=== PATIENT | female | born 1965 | race Caucasian/White ===

== ENCOUNTER → 2018-06-15 | Outpatient (CLI) | payer SELFPAY ==
[~2018-06-15] MED LIST: BACTRIM DS 8001 TAB PO; PROBIOTIC-SUNMARK; PROTONIX 40MG T40 MG PO
[2018-06-15 17:18] LABS: HEMATOCRIT 44.4 % (37.0-47.0); HEMOGLOBIN 15.2 g/dl (12.5-16.0); MEAN CELL VOLUME 92 fl (80.0-100.0); MEAN CORPUSCULAR HEMOGLOBIN 32 pg (27.0-31.0); MEAN CORPUSCULAR HGB CONC 34 g/dl (33.0-37.0); MEAN PLATELET VOLUME 9.9 fl (7.4-10.4); PLATELET COUNT 304 K/mm3 (130-400); RED BLOOD COUNT 4.82 M/mm3 (4.10-5.30); REDCELL DISTRIBUTION WIDTH-CV 13.8 % (11.5-14.5)
[2018-06-15 17:38] LABS: ALBUMIN 4.5 gm/dL (3.5-5.0); BILIRUBIN,TOTAL 0.5 mg/dL (0.0-1.0); CALCIUM 9.6 mg/dL (8.4-10.2); CHOLESTEROL RISK RATIO 2.3; CREATININE, serum 0.59 mg/dL (0.52-1.25); POTASSIUM 3.9 mmol/L (3.4-5.0); TOTAL PROTEIN 7.7 gm/dL (6.4-8.2)
[2018-06-15 18:08] LABS: THYROID STIMULATING HORMONE 0.878 uIU/mL (0.465-4.680)
== END ==
LOC: COL.LAB 16:24
PROVIDERS: Family Medicine
DX: M85.80 Other specified disorders of bone density and structure, unspecified site (principal); F17.200 Nicotine dependence, unspecified, uncomplicated; Z78.0 Asymptomatic menopausal state; Z85.9 Personal history of malignant neoplasm, unspecified

== ENCOUNTER 2019-02-05 13:14 | Emergency (ER) | payer SELFPAY ==
[~2019-02-05] VITALS: Ht 170.2 cm; Wt 63.2 kg
[2019-02-05 13:19] VITALS: BP 162/91; TEMP 97.9
[2019-02-05] MEDS ORDERED: AMOXICILLIN875 MG PO (13:45)
[2019-02-05] MEDS ORDERED: NORCO 325 MG-51 TAB PO (14:00)
[2019-02-05 14:08] VITALS: PULSE 86
== END 2019-02-05 14:08 | disposition home or self-care (01) ==
LOC: COL.ER 13:14
DX: K02.9 Dental caries, unspecified (principal); K04.7 Periapical abscess without sinus; F17.210 Nicotine dependence, cigarettes, uncomplicated; F12.90 Cannabis use, unspecified, uncomplicated
CPT/HCPCS: J1885

== ENCOUNTER 2019-04-09 16:21 | Emergency (ER) | payer OTHER ==
[~2019-04-09] VITALS: Ht 167.6 cm; Wt 59.1 kg
[~2019-04-09 16:21] MED LIST changes: +AMOXICILLIN875 MG PO; +NORCO 325 MG-51 TAB PO
[2019-04-09 16:31] VITALS: BP 176/108; TEMP 98.5
[2019-04-09] MEDS ORDERED: AMOXICILLIN 8751 TAB PO (17:39)
[2019-04-09 17:59] VITALS: PULSE 68
== END 2019-04-09 18:00 | disposition home or self-care (01) ==
LOC: COL.ER 16:21
DX: K04.7 Periapical abscess without sinus (principal); Z87.891 Personal history of nicotine dependence; Z87.11 Personal history of peptic ulcer disease

== ENCOUNTER 2019-07-20 13:40 | Inpatient (IN) | payer OTHER ==
[~2019-07-20] VITALS: Ht 167.6 cm; Wt 67.7 kg
[2019-07-20] VITALS (18 sets, daily range): BP systolic 113–136; BP diastolic 60–93; PULSE 64–100; TEMP 98–98.6
[~2019-07-20 13:40] MED LIST changes: +AMOXICILLIN 8751 TAB PO
[2019-07-20 15:00] LABS: BASO % 0.5 % (0.0-2.0); EOS # 0.1 (0.0-0.7); EOS % 1.5 % (0-4.0); GRAN # 4.1 (1.4-6.5); GRAN % 67.4 % (42.2-75.2); LYMPH # 1.5 (1.2-3.4); LYMPH % 25.2 % (20.0-51.0); MEAN CELL VOLUME 95 fl (80.0-100.0); MEAN CORPUSCULAR HGB CONC 33 g/dl (33.0-37.0); MEAN PLATELET VOLUME 10.2 fl (7.4-10.4); MONO # 0.3 (0.1-0.6); MONO % 5.1 % (1.7-9.3); PLATELET COUNT 215 K/mm3 (130-400); RED BLOOD COUNT 1.93 M/mm3 (4.10-5.30); REDCELL DISTRIBUTION WIDTH-CV 13.8 % (11.5-14.5)
[2019-07-20 15:06] LABS: HEMATOCRIT 18.3 % (37.0-47.0); HEMOGLOBIN 6.1 g/dl (12.5-16.0); MEAN CORPUSCULAR HEMOGLOBIN 32 pg (27.0-31.0)
[2019-07-20 15:10] LABS: ALANINE AMINOTRANSFERASE 16 U/L (9-52); ALBUMIN 3.1 gm/dL (3.5-5.0); ALKALINE PHOSPHATASE 50 U/L (50-136); ANION GAP 3 mmol/L (7-16); AST,SGOT 31 U/L (15-37); BILIRUBIN,TOTAL < 0.1 mg/dL (0.0-1.0); BLOOD UREA NITROGEN 17 mg/dL (7-17); CALCIUM 8.7 mg/dL (8.4-10.2); CARBON DIOXIDE 24 mmol/L (22-30); CHLORIDE 112 mmol/L (98-107); CREATININE, serum 0.45 (0.52-1.25); GLUCOSE 91 mg/dL (74-106); LIPASE 82 U/L (23-300); SODIUM 139 mmol/L (137-145); TOTAL PROTEIN 5.4 gm/dL (6.4-8.2)
[2019-07-20 15:13] LABS: ALCOHOL(ethanol),MEDICAL < 10 mg/dL; C-REACTIVE PROTEIN < 0.5 mg/dL (0.0-0.9)
[2019-07-20] MEDS ORDERED: PROBIOTIC FORMU1 CAP PO (15:27)
[2019-07-20 15:45] LABS: COLLECTION METHOD CLEAN CATCH
[2019-07-20 15:56] LABS: PH 5 (5-8); SQUAMOUS EPITHELIAL 0-2 /hpf; URINE APPEARANCE Clear; URINE BACTERIA None Seen /hpf; URINE BILIRUBIN Negative (NEGATIVE); URINE BLOOD Negative (NEGATIVE); URINE COLOR Yellow; URINE GLUCOSE Negative (NEGATIVE); URINE KETONE Negative (NEGATIVE); URINE LEUKOCYTE ESTERASE Negative (NEGATIVE); URINE NITRATE Negative (NEGATIVE); URINE PROTEIN(semi-quant) Negative (NEGATIVE); URINE RBC 0-2 /hpf; URINE UROBILINOGEN Negative (NEGATIVE)
[2019-07-20 17:00] LABS: INR 0.9 (0.8-3.0); PROTHROMBIN TIME 10.9 SECONDS (9.7-12.8)
--- NOTE | 2019-07-20 19:00 | NUR ---
Patient has been brought to floor via cart. She was able to walk to the bed. Denies pain at this time. Family at bedside. Post-op vitals started on patient. Vital signs stable. Report given to night RN's [place]. No other changes at this time.
[2019-07-20 19:56] LABS: FERRITIN 7 ng/mL (11-264); IRON,SERUM 21 ug/dL (35-150); TOTAL IRON BINDING CAPACITY 368 ug/dL (265-497)
--- NOTE | 2019-07-20 19:57 | NUR ---
REPORTS HEADACHE, TYLENOL 650MG PO NOW. OKAYED FOR FULL LIQUID DIET.
--- NOTE | 2019-07-20 21:08 | NUR ---
Assessment completed, patient resting in bed. Here with dx of low hbg and GI bleed. Patient heart and lung sounds normal. patient receiving blood transfusion and tolerating well. no adverse reactions. patient has iv to right hand. patient on full liquid diet. patient has no c/o pain at this time. call light within reach, will continue to monitor
[2019-07-20 22:40] LABS: HEMATOCRIT 19.1 % (37.0-47.0)
[2019-07-21] VITALS (15 sets, daily range): BP systolic 119–144; BP diastolic 64–90; PULSE 70–94; TEMP 97.7–98.9
--- NOTE | 2019-07-21 01:20 | NUR ---
Patient receiving 2nd transfusion of rbc. Patient tolerating well. Resting in bed. Call light within reach, will continue to monitor
--- NOTE | 2019-07-21 03:24 | NUR ---
Patient receiving 3rd unit, tolerating well. Resting in bed with no adverse reaction. Call light within reach
--- NOTE | 2019-07-21 05:36 | NUR ---
Patient completed transfusion, resting in bed. call light within reach, will continue to monitor
--- NOTE | 2019-07-21 05:52 | NUR ---
Pt c/o feeling like she has "the flu." Patient is shaky and states she has the chills. VSS, temp of 98. Patient states whole body is sore. Patient is able to walk fine. Patient requested to take warm shower. Denies n/v or chest pain. Will let patient take warm shower and continue to monitor
--- NOTE | 2019-07-21 06:10 | NUR ---
Pt took warm shower. States she feels better. Patient is not shaky anymore and says her pain is still there but not as bad. Patient seems more calm. Patient is laying in bed. NS running and vital sign check every 15. Call light within reach, will continue to monitor
--- NOTE | 2019-07-21 06:30 | NUR ---
Patient doing better. Resting in bed eating a popsicle. VSS. Call light within reach, will continue to monitor
[2019-07-21 07:02] LABS: BASO % 0.3 % (0.0-2.0); EOS # 0.1 (0.0-0.7); EOS % 1.5 % (0-4.0); GRAN # 6.3 (1.4-6.5); GRAN % 79.7 % (42.2-75.2); LYMPH # 1.2 (1.2-3.4); LYMPH % 14.8 % (20.0-51.0); MEAN CORPUSCULAR HGB CONC 34 g/dl (33.0-37.0); MONO # 0.2 (0.1-0.6); MONO % 2.4 % (1.7-9.3); PLATELET COUNT 185 K/mm3 (130-400); RED BLOOD COUNT 2.93 M/mm3 (4.10-5.30); REDCELL DISTRIBUTION WIDTH-CV 15.9 % (11.5-14.5)
[2019-07-21 07:04] LABS: HEMOGLOBIN 8.9 g/dl (12.5-16.0); MEAN CORPUSCULAR HEMOGLOBIN 30 pg (27.0-31.0)
[2019-07-21 07:05] LABS: HEMATOCRIT 26.5 % (37.0-47.0); MEAN CELL VOLUME 90 fl (80.0-100.0)
[2019-07-21 07:21] LABS: CALCIUM 8.2 mg/dL (8.4-10.2); CREATININE, serum 0.49 (0.52-1.25); POTASSIUM 3.5 mmol/L (3.4-5.0)
--- NOTE | 2019-07-21 18:00 | NUR ---
Headache improved with prn Tylenol. Denied dizziness or abdominal pain. Ambulatory in room and halls with family. Took general diet well. NPO at midnight for procedure in AM.
--- NOTE | 2019-07-21 20:34 | NUR ---
Patient assessment completed. Patient a/o with VSS. Patient does not c/o pain at this time. Patient has IV in right hand. Patient is ambulatory and voiding. Patient doing well, states she feels a lot better than this morning. Patient ate dinner and has snack in room. Patient to be NPO after midnight. Patient does not have any other complaints at this time. Call light within reach, will continue to monitor
[2019-07-22] VITALS (7 sets, daily range): BP systolic 132–154; BP diastolic 67–85; PULSE 52–74; TEMP 97.7–98
--- NOTE | 2019-07-22 03:56 | NUR ---
Patient doing well. Patient resting in bed. Meds given and patient denies pain at this time. Patient states she feels very good. Call light within reach, will continue to monitor
[2019-07-22 07:09] LABS: BASO % 0.4 % (0.0-2.0); EOS # 0.2 (0.0-0.7); EOS % 4.9 % (0-4.0); GRAN # 2.4 (1.4-6.5); GRAN % 49.2 % (42.2-75.2); LYMPH # 1.8 (1.2-3.4); LYMPH % 37.1 % (20.0-51.0); MEAN CELL VOLUME 90 fl (80.0-100.0); MEAN CORPUSCULAR HGB CONC 34 g/dl (33.0-37.0); MEAN PLATELET VOLUME 10.3 fl (7.4-10.4); MONO # 0.4 (0.1-0.6); PLATELET COUNT 192 K/mm3 (130-400); RED BLOOD COUNT 2.59 M/mm3 (4.10-5.30); REDCELL DISTRIBUTION WIDTH-CV 16.5 % (11.5-14.5)
[2019-07-22 07:15] LABS: ALBUMIN 2.7 gm/dL (3.5-5.0); BILIRUBIN,TOTAL 0.2 mg/dL (0.0-1.0); CALCIUM 8.1 mg/dL (8.4-10.2); CREATININE, serum 0.45 (0.52-1.25); POTASSIUM 3.5 mmol/L (3.4-5.0); TOTAL PROTEIN 4.7 gm/dL (6.4-8.2)
[2019-07-22 07:20] LABS: HEMATOCRIT 23.3 % (37.0-47.0); HEMOGLOBIN 7.8 g/dl (12.5-16.0); MEAN CORPUSCULAR HEMOGLOBIN 30 pg (27.0-31.0)
--- NOTE | 2019-07-22 08:50 | NUR ---
Drowsy. Denies pain. NPO. To procedure per bed with OR staff.
--- NOTE | 2019-07-22 09:40 | NUR ---
Returned to room. No complaints. VSS. Sleeping on side.
[2019-07-22] MEDS ORDERED: PRILOSEC 20MG20 MG PO (12:53)
--- NOTE | 2019-07-22 14:40 | NUR ---
No complaints except sore throat. Took diet well. VSS. Hospitalist saw patient. Dismissed to home with family.
== END 2019-07-22 14:40 | disposition home or self-care (01) | DRG 378 ==
LOC: COL.ER 13:40 → SURG 15:43
PROVIDERS: Emergency Medicine; Family Medicine; Internal Medicine Gastroenterology; Physician Assistant; Student in an Organized Health Care Education/Training Program; ADMIT Hospitalist
PROC: 0DB68ZX Excision of Stomach, Via Natural or Artificial Opening Endoscopic, Diagnostic (ICD-10-PCS; 2019-07-20)
PROC: 30233N1 Transfusion of Nonautologous Red Blood Cells into Peripheral Vein, Percutaneous Approach (ICD-10-PCS; principal; 2019-07-21)
PROC: 0DJ08ZZ Inspection of Upper Intestinal Tract, Via Natural or Artificial Opening Endoscopic (ICD-10-PCS; 2019-07-22)
DX: K25.4 Chronic or unspecified gastric ulcer with hemorrhage (principal); D62 Acute posthemorrhagic anemia; K90.9 Intestinal malabsorption, unspecified; K26.4 Chronic or unspecified duodenal ulcer with hemorrhage; K21.9 Gastro-esophageal reflux disease without esophagitis; F17.210 Nicotine dependence, cigarettes, uncomplicated; T39.315A Adverse effect of propionic acid derivatives, initial encounter; Z85.07 Personal history of malignant neoplasm of pancreas
CPT/HCPCS: 99222-AI; 99232-AI; 99239; C9113; J1200; J2250; J2405; J3010; J7030; P9016

== ENCOUNTER 2021-10-11 18:03 | Emergency (ER) | payer SELFPAY ==
[~2021-10-11] VITALS: Ht 167.6 cm; Wt 72.7 kg
[~2021-10-11 18:03] MED LIST changes: +PRILOSEC 20MG20 MG PO; +PROBIOTIC FORMU1 CAP PO
[2021-10-11 18:21] VITALS: TEMP 98
[2021-10-11 20:32] LABS: BASO % 0.5 % (0.0-2.0); EOS % 1.1 % (0.0-4.0); GRAN # 1.7 K/mm3 (1.4-6.5); GRAN % 44.7 % (42.2-75.2); HEMOGLOBIN 13.9 g/dl (12.5-16.0); LYMPH # 1.6 K/mm3 (1.2-3.4); LYMPH % 41.6 % (20.0-51.0); MEAN CELL VOLUME 91 fl (80.0-100.0); MEAN CORPUSCULAR HEMOGLOBIN 32 pg (27-31); MEAN CORPUSCULAR HGB CONC 35 g/dl (33.0-37.0); MEAN PLATELET VOLUME 9.3 fl (7.4-10.4); MONO # 0.4 K/mm3 (0.1-0.6); MONO % 11.8 % (1.7-9.3); PLATELET COUNT 291 K/mm3 (130-400); RED BLOOD COUNT 4.39 M/mm3 (4.10-5.30)
[2021-10-11 21:04] LABS: ALANINE AMINOTRANSFERASE 25 U/L (0-55); ALBUMIN 4.9 gm/dL (3.5-5.0); ALKALINE PHOSPHATASE 90 U/L (40-150); ANION GAP 16 mmol/L (7-16); AST,SGOT 48 U/L (5-34); BILIRUBIN,TOTAL 0.4 mg/dL (0.2-1.2); BLOOD UREA NITROGEN 9 mg/dL (10-20); CALCIUM 9.7 mg/dL (8.4-10.2); CARBON DIOXIDE 20 mmol/L (22-29); CHLORIDE 96 mmol/L (98-107); GLUCOSE 84 mg/dL (70-99); POTASSIUM 3.7 mmol/L (3.5-4.5); SODIUM 132 mmol/L (136-145); TOTAL PROTEIN 8.3 gm/dL (6.2-8.1)
[2021-10-11 21:19] LABS: TROPONIN-I < 0.010 ng/mL (0.00-0.033)
[2021-10-12] VITALS: BP 142/78; PULSE 76
== END 2021-10-12 | disposition home or self-care (01) ==
LOC: COL.ER 18:03
PROVIDERS: Emergency Medicine
DX: U07.1 COVID-19 (principal); D72.819 Decreased white blood cell count, unspecified; K21.9 Gastro-esophageal reflux disease without esophagitis; I10 Essential (primary) hypertension; Z79.899 Other long term (current) drug therapy

== ENCOUNTER 2022-08-24 18:28 | Emergency (ER) | payer SELFPAY ==
[~2022-08-24] VITALS: Ht 165.1 cm; Wt 72.7 kg
[2022-08-24 18:33] VITALS: TEMP 97.1
[2022-08-24 18:42] LABS: COLLECTION METHOD CLEAN CATCH
[2022-08-24 18:45] LABS: URINE APPEARANCE Clear (CLEAR/HAZY); URINE COLOR Yellow (YELLOW)
[2022-08-24 18:46] LABS: PH 5.5 (5.0-8.5); URINE BLOOD Negative (NEGATIVE); URINE GLUCOSE Negative (NEGATIVE); URINE KETONE Negative (NEGATIVE); URINE NITRATE Negative (NEGATIVE); URINE PROTEIN(semi-quant) Negative (NEGATIVE); URINE UROBILINOGEN 0.2 E.U/dL (0.2-1.0)
[2022-08-24 18:49] LABS: SQUAMOUS EPITHELIAL None Seen /hpf (0-10); URINE BACTERIA None Seen /hpf (NONE SEEN); URINE RBC 0-2 /hpf (0-2)
[2022-08-24 20:15] LABS: BASO % 0.6 % (0.0-2.0); EOS # 0.1 K/mm3 (0.0-0.7); EOS % 1.2 % (0.0-4.0); GRAN # 4.9 K/mm3 (1.4-6.5); GRAN % 67.9 % (42.2-75.2); HEMATOCRIT 40.1 % (37.0-47.0); HEMOGLOBIN 13.9 g/dl (12.5-16.0); LYMPH # 1.7 K/mm3 (1.2-3.4); LYMPH % 23.6 % (20.0-51.0); MEAN CELL VOLUME 88 fl (80.0-100.0); MEAN CORPUSCULAR HEMOGLOBIN 31 pg (27-31); MEAN CORPUSCULAR HGB CONC 35 g/dl (33.0-37.0); MEAN PLATELET VOLUME 10.4 fl (7.4-10.4); MONO # 0.5 K/mm3 (0.1-0.6); MONO % 6.6 % (1.7-9.3); PLATELET COUNT 275 K/mm3 (130-400); RED BLOOD COUNT 4.56 M/mm3 (4.10-5.30); REDCELL DISTRIBUTION WIDTH-CV 13.4 % (11.5-14.5)
[2022-08-24 20:33] LABS: ALBUMIN 4.2 gm/dL (3.5-5.0); BILIRUBIN,TOTAL 0.5 mg/dL (0.2-1.2); C-REACTIVE PROTEIN 0.05 mg/dL (0.00-0.50); CALCIUM 9.7 mg/dL (8.4-10.2); CREATININE, serum 0.67 mg/dL (0.57-1.11); POTASSIUM 3.9 mmol/L (3.5-4.5); TOTAL PROTEIN 7.3 gm/dL (6.2-8.1)
[2022-08-24] MEDS ORDERED: DIFLUCAN150 MG PO (20:47)
[2022-08-24] MEDS ORDERED: ZESTRIL 10MG10 MG PO (20:57)
[2022-08-24 21:10] VITALS: BP 168/112; PULSE 98
== END 2022-08-24 21:14 | disposition home or self-care (01) ==
LOC: COL.ER 18:28
PROVIDERS: Nurse Practitioner
DX: R53.83 Other fatigue (principal); R03.0 Elevated blood-pressure reading, without diagnosis of hypertension; Z87.891 Personal history of nicotine dependence; Z28.310 Unvaccinated for COVID-19

== ENCOUNTER 2024-04-23 14:31 | Emergency (ER) | payer SELFPAY ==
[~2024-04-23] VITALS: Ht 167.6 cm; Wt 59.1 kg
[~2024-04-23 14:31] MED LIST changes: +DIFLUCAN150 MG PO; +ZESTRIL 10MG10 MG PO
[2024-04-23 14:33] VITALS: TEMP 96.8
[2024-04-23 15:11] LABS: BASO # 0.1 K/mm3 (0.0-0.2); BASO % 0.7 % (0.0-2.0); EOS # 0.1 K/mm3 (0.0-0.7); EOS % 0.7 % (0.0-4.0); GRAN # 8.2 K/mm3 (1.4-6.5); GRAN % 82.2 % (42.2-75.2); HEMATOCRIT 41.6 % (37.0-47.0); HEMOGLOBIN 14.3 g/dl (12.5-16.0); LYMPH # 1.3 K/mm3 (1.2-3.4); LYMPH % 13.3 % (20.0-51.0); MEAN CELL VOLUME 89 fl (80.0-100.0); MEAN CORPUSCULAR HEMOGLOBIN 31 pg (27-31); MEAN CORPUSCULAR HGB CONC 34 g/dl (33.0-37.0); MEAN PLATELET VOLUME 9.7 fl (7.4-10.4); MONO # 0.3 K/mm3 (0.1-0.6); MONO % 2.7 % (1.7-9.3); PLATELET COUNT 463 K/mm3 (130-400); RED BLOOD COUNT 4.67 M/mm3 (4.10-5.30); REDCELL DISTRIBUTION WIDTH-CV 12.6 % (11.5-14.5)
[2024-04-23] MEDS ORDERED: Ondansetron 4 MG/2 ML VIAL IV ONE (15:15)
[2024-04-23] MEDS ORDERED: Morphine 4 MG/ML VIAL IV PRN (15:15)
[2024-04-23] MEDS ORDERED: NS 1,000 ML IV ONE (15:15)
[2024-04-23 15:25] LABS: ALBUMIN 5.2 g/dL (3.5-5.0); BILIRUBIN,TOTAL 0.5 mg/dL (0.2-1.2); CALCIUM 10.2 mg/dL (8.4-10.2); CREATININE, serum 0.78 mg/dL (0.57-1.11); POTASSIUM 3.6 mEq/L (3.5-4.5); TOTAL PROTEIN 8.6 g/dl (6.2-8.1)
[2024-04-23 15:31] LABS: TROPONIN-I 0.013 ng/mL (0.00-0.033)
[2024-04-23] MEDS ORDERED: Iohexol 300 - 100 ML VIAL IV ONE (16:15)
[2024-04-23] MEDS ORDERED: droPERidol 2.5 MG/ML 2 ML VIAL IV ONE (16:15)
[2024-04-23] MEDS ORDERED: NS 100 ML IV SCH (16:20)
[2024-04-23 18:36] LABS: COLLECTION METHOD CLEAN CATCH
[2024-04-23 19:14] LABS: URINE APPEARANCE Clear (CLEAR/HAZY); URINE COLOR YELLOW (YELLOW); URINE GLUCOSE Negative (NEGATIVE); URINE PROTEIN(semi-quant) Negative (NEGATIVE)
[2024-04-23 19:15] LABS: URINE BLOOD TRACE-INTACT (NEGATIVE); URINE KETONE TRACE (NEGATIVE); URINE NITRATE Negative (NEGATIVE); URINE UROBILINOGEN 0.2 E.U/dL (0.2-1.0)
[2024-04-23] MEDS ORDERED: ZOFRAN ODT4 MG PO (19:50)
[2024-04-23 20:11] VITALS: BP 145/95; PULSE 75
== END 2024-04-23 20:11 | disposition home or self-care (01) ==
LOC: COL.ER 14:31
PROVIDERS: Personal Emergency Response Attendant
DX: R11.2 Nausea with vomiting, unspecified (principal); R10.13 Epigastric pain
CPT/HCPCS: J1790; J2405; J7030; Q9967